=== PATIENT | female | born 1970 | race Caucasian/White ===

== ENCOUNTER 2022-09-01 18:20 | Inpatient (IN) | payer MEDICAID ==
[~2022-09-01] VITALS: Ht 167.6 cm; Wt 64.4 kg
[2022-09-01 18:20] VITALS: BP_SYST 114
[2022-09-01 19:00] LABS: BASOPHILS # (AUTO) 0.1 K/uL (0.0-0.2); BASOPHILS % (AUTO) 0.9 % (0.0-2.0); EOSINOPHILS # (AUTO) 0.2 K/uL (0.0-0.4); EOSINOPHILS % (AUTO) 1.2 % (0.0-4.0); HEMATOCRIT 30.7 % (36-48); HEMOGLOBIN 9.3 g/dL (12.0-16.0); LYMPHOCYTES # (AUTO) 1.1 K/uL (1.0-5.5); LYMPHOCYTES % (AUTO) 7.9 % (20.5-51.5); MEAN CORPUSCULAR HEMOGLOBIN 29 pg (27-31); MEAN CORPUSCULAR HGB CONC 30 % (32-36); MEAN CORPUSCULAR VOLUME 95 fL (79.0-98.0); MONOCYTES # (AUTO) 0.6 K/uL (0.0-1.0); MONOCYTES % (AUTO) 4.5 % (1.7-9.3); NEUTROPHILS % (AUTO) 85.5 % (40.0-70.0); PLATELET COUNT (AUTO) 205 K/uL (130-430); RED BLOOD CELL COUNT(AUTO) 3.24 MIL/uL (4.2-6.2); RED CELL DISTRIBUTION WIDTH 19.5 % (9.0-15.0)
[2022-09-01 19:14] LABS: CALCIUM 9.2 mg/dL (8.4-11.0); CREATININE 2.72 mg/dL (0.55-1.30)
[2022-09-01 19:19] LABS: ALBUMIN 2.8 g/dL (3.4-4.8); TOTAL BILIRUBIN 0.8 mg/dL (0.0-1.0)
[2022-09-01 19:34] LABS: INR 1.3 (0.8-1.2)
[2022-09-01] MEDS ORDERED: LORazepam 2 MG/ML VIAL IVP ONE (21:45)
[2022-09-01] MEDS ORDERED: MORPHINE 2 MG/ML INJ. SYRINGE IVP ONE (22:30)
[2022-09-02] VITALS (8 sets, daily range): BP systolic 95–116
[2022-09-02] MEDS ORDERED: cefTRIAXone 1 GM IVPB PREMIX 50 ML IV ONE (00:30)
[2022-09-02] MEDS ORDERED: CEFEPIME 2 GM in D5W 100 ML IV ONE (00:30)
[2022-09-02] MEDS ORDERED: MORPHINE 2 MG/ML INJ. SYRINGE ONE (01:27)
[2022-09-02] MEDS ORDERED: CEFEPIME 2 GM/VIAL (MAXIPIME) ONE (02:54)
[2022-09-02] MEDS ORDERED: SENN8.6T19 GT (08:32)
[2022-09-02] MEDS ORDERED: DORZ10DR13 EACH EYE (08:32)
[2022-09-02] MEDS ORDERED: MIDO10TA GT (08:32)
[2022-09-02] MEDS ORDERED: PRO40 GT (08:32)
[2022-09-02] MEDS ORDERED: LEVE500T9 IVPB (08:32)
[2022-09-02] MEDS ORDERED: MIRT-91 GT (08:32)
[2022-09-02] MEDS ORDERED: GABA-529 GT (08:32)
[2022-09-02] MEDS ORDERED: LORA-259 IVP (08:32)
[2022-09-02] MEDS ORDERED: LACT10SO7 GT (08:32)
[2022-09-02] MEDS ORDERED: DARB60VI IJ (08:32)
[2022-09-02] MEDS ORDERED: CARB30DR14 EACH EYE (08:32)
[2022-09-02] MEDS ORDERED: FOLI0.8T41 GT (08:32)
[2022-09-02] MEDS ORDERED: FLUC200T GT (08:32)
[2022-09-02] MEDS ORDERED: AMIO200T61 GT (08:32)
[2022-09-02] MEDS ORDERED: VIS25 GT (08:32)
[2022-09-02] MEDS ORDERED: MELA5TAB21 GT (08:32)
[2022-09-02] MEDS ORDERED: HYDR-3917 GT (08:32)
[2022-09-02] MEDS ORDERED: BRI.2% EACH EYE (08:32)
[2022-09-02] MEDS ORDERED: WARF3TAB59 PO (11:14)
[2022-09-02] MEDS ORDERED: DARBEPOETIN ALFA IN POLYSORBAT 60 MCG IJ SCH (13:30)
[2022-09-02] MEDS ORDERED: NALOXONE HCL 0.4 MG/ML AMP (NARCAN) IVP PRN (13:30)
[2022-09-02] MEDS ORDERED: AMIODARONE HCL 200 MG TABLET GT ONE (13:30)
[2022-09-02] MEDS ORDERED: NEPHROVITE, (FOLIC ACID/VITAMIN B COMP W-C 1 TAB) GT ONE (15:30)
[2022-09-02] MEDS: HYDROcodone/ACETAMIN 5-325 MG TAB (NORCO/ VICODIN) GT PRN (15:36)
[2022-09-02] MEDS ORDERED: MIDODRINE HCL 5 MG TABLET (PROAMATINE) GT ONE (16:00)
[2022-09-02] MEDS ORDERED: FLUCONAZOLE 200 MG TABLET (DIFLUCAN) GT ONE (16:00)
[2022-09-02] MEDS: PEG 400/HYPROMELLOSE/GLYCERIN 15 ML DROPS EACH EYE SCH ×2 (17:00→21:25)
[2022-09-02] MEDS ORDERED: WARFARIN SODIUM 5 MG TABLET GT ONE (18:00)
[2022-09-02 18:19] LABS: BF APPEARANCE UNSPUN HAZY (CLEAR); BODY FLUID COLOR YELLOW (LT YELLOW); BODY FLUID SOURCE/ TYPE ASCITES; BODY FLUID TOTAL VOLUME 5175 mL; SOURCE/TYPE ,BODY FLUID ASCITES
[2022-09-02] MEDS ORDERED: MELATONIN 5 MG TABLET PO SCH (21:00)
[2022-09-02] MEDS ORDERED: GABAPENTIN 100 MG CAPSULE GT SCH (21:00)
[2022-09-02] MEDS ORDERED: MIRTAZAPINE 15 MG TABLET GT SCH (21:00)
[2022-09-02] MEDS: DORZOLAMIDE HCL/TIMOLOL MAL. 10 ML EYE DROPS (COSOPT) EACH EYE SCH (21:25)
[2022-09-02] MEDS: BRIMONIDINE TARTRATE 0.2% 5 mL EYE DROPS EACH EYE SCH (21:26)
[2022-09-02] MEDS: LevETIRAcetam 500 MG/5 ML UDC ORAL LIQUID GT SCH (21:26)
[2022-09-02] MEDS: LORazepam 1 MG TABLET PO PRN (21:27)
[2022-09-02 21:47] LABS: EOSINOPHIL, BODY FLUID 0 %; LYMPHOCYTES, BODY FLUID 72 %; MONOCYTES,BODY FLUID 26 %; NEUTROPHIL, BODY FLUID 2 %; RBC, BODY FLUID 7 /uL; WBC, BODY FLUID 4 /uL
[2022-09-02 22:27] LABS: BODY FLUID GLUCOSE 90 mg/dL; BODY FLUID TOTAL PROTEIN 4.6 g/dL
[2022-09-03 00:20] VITALS: BP_SYST 84
[2022-09-03 00:42] VITALS: BP_SYST 92
[2022-09-03] MEDS: LORazepam 1 MG TABLET PO PRN (03:48)
[2022-09-03 07:07] LABS: BASOPHILS # (AUTO) 0.1 K/uL (0.0-0.2); BASOPHILS % (AUTO) 1.5 % (0.0-2.0); EOSINOPHILS # (AUTO) 0.1 K/uL (0.0-0.4); EOSINOPHILS % (AUTO) 0.8 % (0.0-4.0); HEMATOCRIT 24.8 % (36-48); LYMPHOCYTES # (AUTO) 0.7 K/uL (1.0-5.5); LYMPHOCYTES % (AUTO) 9.7 % (20.5-51.5); MEAN CORPUSCULAR HEMOGLOBIN 30 pg (27-31); MEAN CORPUSCULAR HGB CONC 32 % (32-36); MEAN CORPUSCULAR VOLUME 93 fL (79.0-98.0); MONOCYTES # (AUTO) 0.5 K/uL (0.0-1.0); MONOCYTES % (AUTO) 6.1 % (1.7-9.3); NEUTROPHILS # (AUTO) 6.2 K/uL (1.8-7.7); NEUTROPHILS % (AUTO) 81.9 % (40.0-70.0); PLATELET COUNT (AUTO) 167 K/uL (130-430); RED BLOOD CELL COUNT(AUTO) 2.67 MIL/uL (4.2-6.2); RED CELL DISTRIBUTION WIDTH 18.8 % (9.0-15.0); WHITE BLOOD COUNT (AUTO) 7.5 K/uL (4.8-10.8)
[2022-09-03 07:20] LABS: INR 1.4 (0.8-1.2); PROTHROMBIN TIME 14.4 SECS (9.5-12.5)
[2022-09-03 07:44] LABS: ALBUMIN 2.1 g/dL (3.4-4.8); CALCIUM 8.6 mg/dL (8.4-11.0); CREATININE 3.26 mg/dL (0.55-1.30); TOTAL BILIRUBIN 0.6 mg/dL (0.0-1.0)
[2022-09-03] MEDS ORDERED: LANSOPRAZOLE 30 MG CAPSULE.DR GT SCH (09:00)
[2022-09-03] MEDS ORDERED: NEPHROVITE, (FOLIC ACID/VITAMIN B COMP W-C 1 TAB) GT SCH (09:00)
[2022-09-03] MEDS ORDERED: SENNOSIDES 8.6 MG TABLET GT SCH (09:00)
[2022-09-03] MEDS ORDERED: MIDODRINE HCL 5 MG TABLET (PROAMATINE) GT SCH ×2 (09:00)
[2022-09-03] MEDS ORDERED: AMIODARONE HCL 200 MG TABLET GT SCH (09:00)
[2022-09-03] MEDS ORDERED: LACTULOSE 20 GM/30 ML UDC GT SCH (09:00)
[2022-09-03] MEDS ORDERED: WARFARIN SODIUM 3 MG TABLET GT SCH (09:00)
[2022-09-03] MEDS ORDERED: FLUCONAZOLE 200 MG TABLET (DIFLUCAN) GT SCH (09:00)
[2022-09-03] MEDS: BRIMONIDINE TARTRATE 0.2% 5 mL EYE DROPS EACH EYE SCH (09:08)
[2022-09-03] MEDS: PEG 400/HYPROMELLOSE/GLYCERIN 15 ML DROPS EACH EYE SCH (09:09)
[2022-09-03] MEDS: LevETIRAcetam 500 MG/5 ML UDC ORAL LIQUID GT SCH (09:09)
[2022-09-03] MEDS: DORZOLAMIDE HCL/TIMOLOL MAL. 10 ML EYE DROPS (COSOPT) EACH EYE SCH (09:09)
[2022-09-03] MEDS: HYDROcodone/ACETAMIN 5-325 MG TAB (NORCO/ VICODIN) GT PRN (09:15)
[2022-09-03 10:39] VITALS: BP_SYST 90
[2022-09-03 11:34] VITALS: BP_SYST 91
[2022-09-03 11:42] VITALS: BP_SYST 94
== END 2022-09-03 12:20 ==
LOC: SED 18:20 → SMU 09-02 08:12 → STU 09-02 10:06
PROVIDERS: ADMIT Internal Medicine; ATTEND Internal Medicine
PROC: 5A1945Z Respiratory Ventilation, 24-96 Consecutive Hours (ICD-10-PCS; principal; 2022-09-02)
PROC: 0W9G3ZZ Drainage of Peritoneal Cavity, Percutaneous Approach (ICD-10-PCS; 2022-09-02)
PROC: BW40ZZZ Ultrasonography of Abdomen (ICD-10-PCS; 2022-09-02)
DX: R18.8 Other ascites (principal); J96.10 Chronic respiratory failure, unspecified whether with hypoxia or hypercapnia; I42.9 Cardiomyopathy, unspecified; N18.6 End stage renal disease; D63.1 Anemia in chronic kidney disease; R65.10 Systemic inflammatory response syndrome (SIRS) of non-infectious origin without acute organ dysfunction; Q87.40 Marfan syndrome, unspecified; I50.22 Chronic systolic (congestive) heart failure; K74.69 Other cirrhosis of liver; G40.909 Epilepsy, unspecified, not intractable, without status epilepticus; I48.0 Paroxysmal atrial fibrillation; Z20.822 Contact with and (suspected) exposure to COVID-19; B96.89 Other specified bacterial agents as the cause of diseases classified elsewhere; H54.7 Unspecified visual loss; Z79.01 Long term (current) use of anticoagulants; Z93.0 Tracheostomy status; Z93.4 Other artificial openings of gastrointestinal tract status; Z86.73 Personal history of transient ischemic attack (TIA), and cerebral infarction without residual deficits; Z95.2 Presence of prosthetic heart valve; Z99.2 Dependence on renal dialysis
CPT/HCPCS: 36415; 49083; 71045; 76376; 80053; 82042; 82140; 82150; 82947; 83605; 84157; 84484; 85025; 85610-TC; 85730-TC; 87040; 87070-TC; 87081; 87205-TC; 88108; 88305; 89051-TC; 89060-TC; 94002; 94003; 94640; 94760; 96365; 96375; 99285; G0378; J0692; J2060; J2270

== ENCOUNTER 2022-09-23 18:35 | Inpatient (IN) | payer MEDICAID ==
[~2022-09-23] VITALS: Ht 167.6 cm; Wt 67.1 kg
[~2022-09-23 18:35] MED LIST: AMIO200T61 GT; BRI.2% EACH EYE; CARB30DR14 EACH EYE; DARB60VI IJ; DORZ10DR13 EACH EYE; FLUC200T GT; FOLI0.8T41 GT; GABA-529 GT; HYDR-3917 GT; LACT10SO7 GT; LEVE500T9 IVPB; LORA-259 IVP; MELA5TAB21 GT; MIDO10TA GT; MIRT-91 GT; PRO40 GT; SENN8.6T19 GT; VIS25 GT; WARF3TAB59 PO
[2022-09-23 18:50] VITALS: BP_SYST 105
[2022-09-23] MEDS ORDERED: VANCOMYCIN HCL 1,000 MG in D5W 250 ML IV ONE (19:00)
[2022-09-23] MEDS ORDERED: HYDROmorphone 1 MG/ML INJ. CARTRIDGE IVP ONE ×3 (19:00→22:00)
[2022-09-23] MEDS ORDERED: PIPERACILLIN/TAZO 3.375 GM in D5W 50 ML IV ONE (19:00)
[2022-09-23] MEDS ORDERED: ONDANSETRON HCL 4 MG/2 ML VIAL IVP ONE ×2 (19:00)
--- NOTE | 2022-09-23 19:00 | NUR ---
ER Dr.DELA COX at bedside examining patient.
[2022-09-23 19:23] LABS: BASOPHILS # (AUTO) 0.1 K/uL (0.0-0.2); BASOPHILS % (AUTO) 1.1 % (0.0-2.0); EOSINOPHILS % (AUTO) 0.7 % (0.0-4.0); HEMATOCRIT 27.6 % (36-48); LYMPHOCYTES # (AUTO) 0.5 K/uL (1.0-5.5); LYMPHOCYTES % (AUTO) 6.5 % (20.5-51.5); MEAN CORPUSCULAR HEMOGLOBIN 29 pg (27-31); MEAN CORPUSCULAR HGB CONC 33 % (32-36); MEAN CORPUSCULAR VOLUME 90 fL (79.0-98.0); MONOCYTES # (AUTO) 0.4 K/uL (0.0-1.0); NEUTROPHILS # (AUTO) 6.2 K/uL (1.8-7.7); NEUTROPHILS % (AUTO) 86.7 % (40.0-70.0); PLATELET COUNT (AUTO) 117 K/uL (130-430); RED BLOOD CELL COUNT(AUTO) 3.07 MIL/uL (4.2-6.2); RED CELL DISTRIBUTION WIDTH 19.5 % (9.0-15.0); WHITE BLOOD COUNT (AUTO) 7.1 K/uL (4.8-10.8)
[2022-09-23 19:41] LABS: ANION GAP 10 (5-15); CHLORIDE 97 mmol/L (98-107); CREATININE 1.71 mg/dL (0.55-1.30); GLUCOSE 84 mg/dL (70-99); UREA NITROGEN, BLOOD 28 mg/dL (8-21)
[2022-09-23 19:43] LABS: INR 2.6 (0.8-1.2)
[2022-09-23 19:44] LABS: GFR AFRICAN AMERICAN 41 mL/min (>90)
[2022-09-23] MEDS ORDERED: MAG HYDROX/AL HYDROX/SIMETH 30 ML, DICYCLOMINE HCL 20 MG, LIDOCAINE VISCOUS 2% 15ML (PO... PO ONE ×3 (19:45)
[2022-09-23 19:48] LABS: ALANINE AMINOTRANSFERASE 18 U/L (12-78); ALBUMIN 3.6 g/dL (3.4-4.8); ASPARTATE AMINOTRANSFERASE 18 U/L (10-37); TOTAL BILIRUBIN 1.1 mg/dL (0.0-1.0)
--- NOTE | 2022-09-23 20:25 | NUR ---
Placed in room 2 . Placed on teletypesetter monitor, blood pressure machine and pulse oximeter. To gown for exam. Side rails up. Report given to LEIGH ANN CALI(REG).
--- NOTE | 2022-09-23 20:25 | NUR ---
pt brought in by EMS from [facility] for abdominal pain, stating needing paracentesis. pt connected to bedside monitors. a & o. pt with tracheosotomy and G-Tube. abdominal pain and distention noted. pt with dialysis access to the right upper chest and double lumen midline to the right upper arm. pt ventilator settings AC 20, vT 400, PEEP 5, Fi02 50%. Tracheostomy Shiley XLT size 7. pt able to speak softly. c/o abdominal pain. no acute distress noted. gurney in lowest locked position. will continue to monitor.
--- NOTE | 2022-09-23 21:00 | NUR ---
pt taken to CT via gurney with engineering technologist and RT. pt stable. no acute distress noted.
--- NOTE | 2022-09-23 21:22 | NUR ---
Note [email or web address] in EDM - 09/23/22 at 2125 by [email or web address] RT NOTES ASSISTED WITH TRANSFER OF PATIENT TO CT SCAN OF ABDOMEN. PT BAGGED WITH 100% FIO2 VIA AMBU BAG. NO SOB NOTED. PLACED BACK ON VENT AFTER CT WITH CURRENT SETTINGS.
--- NOTE | 2022-09-23 21:25 | NUR ---
RT NOTES ASSISTED WITH TRANSFER OF PATIENT AT [address] SCAN OF ABDOMEN. PT BAGGED WITH 100% FIO2 VIA AMBU BAG. NO SOB NOTED. PLACED BACK ON VENT AFTER CT WITH CURRENT SETTINGS.
--- NOTE | 2022-09-23 21:38 | NUR ---
Admit bed requested Patient will be admitted to care of . Admitted to TELE unit. Diagnosis ABD PAIN Inpatient (Yes or No) YES Observation (Yes or No) NO Orientation concerns or request close to nursing station (Yes or No) YES Covid Status PENDING On vent or bipap VENT Isolation requirements [facility] Needs a sitter NO From Home (Yes or if No enter name of facility) [facility] Requires Dialysis (Yes or No) NO Med Rec Completed (Yes of No) PENDING
[2022-09-23] MEDS ORDERED: NALOXONE HCL 0.4 MG/ML AMP (NARCAN) IVP PRN (22:00)
[2022-09-23] MEDS ORDERED: DARBEPOETIN ALFA IN POLYSORBAT 60 MCG IJ SCH (22:00)
[2022-09-23] MEDS ORDERED: LORazepam 1 MG TABLET GT PRN (22:00)
[2022-09-23] MEDS ORDERED: PANTOPRAZOLE SODIUM 40 MG/VIAL (PROTONIX) IVP ONE (22:15)
--- NOTE | 2022-09-23 22:30 | NUR ---
COVID AND MRSA SWABS COLLECETD AND SENT TO LAB.
[2022-09-23] MEDS ORDERED: PIPERACILLIN/TAZOBACTAM 3.375 GM/VIAL (ZOSYN) IV ONE (23:23)
--- NOTE | 2022-09-23 23:40 | NUR ---
RT NOTES ASSISTED WITH TRANSFER TO [facility]. BAGGED PT WITH 100% FIO2 VIA AMBU BAG. NO SOB NOTED. PLACED BACK ON VENT WITH CURRENT SETTINGS. Addendum: 09/24/22 at 0049 by Orlando Iyer RT Amended: Links added.
--- NOTE | 2022-09-24 00:02 | NUR ---
Patient will be admitted to care of telemetry. Admitted to tele unit. Will go to room 111 A. Belongings list completed. Complete and up to date summary report printed. SBAR report to be given at bedside to KARELY Agosto with opportunity for questions.
--- NOTE | 2022-09-24 00:15 | NUR ---
ADMISSION NOTE Received patient from ER via gurney. Patient admitted with diagnosis of ABD PAIN. Patient is awake, alert, oriented X 3 and Aphasic. Patient is also vent dependent. Patient oriented to hospital room, call light, toileting, pain management and safety-teach back done. Patient informed that Viral Morgan will be the nurse and that their room number is 111A. Personal belongings checked and Belongings List documented. Call light within reach.
[2022-09-24 00:44] VITALS: BP_SYST 77
[2022-09-24 01:09] VITALS: BP_SYST 96
--- NOTE | 2022-09-24 04:01 | NUR ---
Consultation Paged Reason for Consultation: Abdominal Pain Was consult called: Y Person who was notified: Sarai Consulting Physician: Dr. Foss (Dr. Davis is customer relationship specialist) Ordering Physician: Dr. Rodriguez
--- NOTE | 2022-09-24 04:24 | NUR ---
Consultation Paged Reason for Consultation: respiratory failure Was consult called: Y Person who was notified: Barbra Consulting Physician: Dr. Garnica Ordering Physician: Dr. Rodriguez
--- NOTE | 2022-09-24 04:30 | NUR ---
Consultation Paged Reason for Consultation: Renal Failure Was consult called: Y Person who was notified: Sarai Consulting Physician: Jhon Mcmanus (Dr. Kumar is clinical documentation manager) Ordering Physician: Dr. Rodriguez
[2022-09-24] MEDS: PEG 400/HYPROMELLOSE/GLYCERIN 15 ML DROPS EACH EYE SCH ×4 (09:00→21:00)
[2022-09-24] MEDS: BRIMONIDINE TARTRATE 0.2% 5 mL EYE DROPS EACH EYE SCH ×2 (09:48→20:45)
[2022-09-24] MEDS: AMIODARONE HCL 200 MG TABLET GT SCH (09:50)
[2022-09-24] MEDS: MIDODRINE HCL 5 MG TABLET (PROAMATINE) GT SCH (09:50)
[2022-09-24] MEDS: SENNOSIDES 8.6 MG TABLET GT SCH (09:50)
[2022-09-24] MEDS: levETIRAcetam 500 MG TABLET GT SCH (09:50)
[2022-09-24] MEDS: NEPHROVITE, (FOLIC ACID/VITAMIN B COMP W-C 1 TAB) GT SCH (09:50)
[2022-09-24 09:53] LABS: BASOPHILS # (AUTO) 0.1 K/uL (0.0-0.2); BASOPHILS % (AUTO) 1.1 % (0.0-2.0); EOSINOPHILS % (AUTO) 0.7 % (0.0-4.0); HEMATOCRIT 24.9 % (36-48); HEMOGLOBIN 8.1 g/dL (12.0-16.0); LYMPHOCYTES # (AUTO) 0.7 K/uL (1.0-5.5); LYMPHOCYTES % (AUTO) 14.8 % (20.5-51.5); MEAN CORPUSCULAR HEMOGLOBIN 29 pg (27-31); MEAN CORPUSCULAR HGB CONC 33 % (32-36); MEAN CORPUSCULAR VOLUME 89 fL (79.0-98.0); MONOCYTES # (AUTO) 0.4 K/uL (0.0-1.0); MONOCYTES % (AUTO) 9.2 % (1.7-9.3); NEUTROPHILS # (AUTO) 3.5 K/uL (1.8-7.7); NEUTROPHILS % (AUTO) 74.2 % (40.0-70.0); PLATELET COUNT (AUTO) 107 K/uL (130-430); RED CELL DISTRIBUTION WIDTH 18.8 % (9.0-15.0); WHITE BLOOD COUNT (AUTO) 4.8 K/uL (4.8-10.8)
[2022-09-24] MEDS: HYDROcodone/ACETAMIN 5-325 MG TAB (NORCO/ VICODIN) GT PRN ×2 (09:53→18:31)
[2022-09-24] MEDS: LACTULOSE 20 GM/30 ML UDC GT SCH (09:53)
[2022-09-24] MEDS: PANTOPRAZOLE SODIUM 40 MG/VIAL (PROTONIX) IVP SCH (09:56)
[2022-09-24 10:10] LABS: ALBUMIN 2.8 g/dL (3.4-4.8); CALCIUM 8.9 mg/dL (8.4-11.0); CREATININE 1.96 mg/dL (0.55-1.30); INR 2.2 (0.8-1.2); PHOSPHORUS 4.1 mg/dL (2.7-4.5); PROTHROMBIN TIME 22.5 SECS (9.5-12.5); TOTAL BILIRUBIN 1.1 mg/dL (0.0-1.0)
[2022-09-24 10:49] VITALS: BP_SYST 94
--- NOTE | 2022-09-24 12:12 | NUR ---
Informed by technical writer that Radiology will hold off on paracentesis due to low blood pressure. Radiologist recommending 2 units FFP then will revisit case in the morning.
[2022-09-24 18:43] VITALS: BP_SYST 104
[2022-09-24 18:44] VITALS: BP_SYST 114
--- NOTE | 2022-09-24 19:00 | NUR ---
RECEIVED PT IN BED WITH AT THE BEDSIDE.AOX3.ON TRACH TO VENT WITH SETTINGS OF AC, RATE-20,TV-400,FIO2-40% AND PEEP-5.R CHEST PERMA CATH NOTED FOR HD ACCESS.R UPPER ARM MIDLINE IN PLACE.G TUBE IN PLACE, FEEDING WAS HELD DUE TO FAMILY REFUSAL.ABDOMINAL DISTENTION NOTED, MD AWARE.BED IN LOWEST POSITION.BEDSIDE TABLE AND CALL LIGHT ARE WITHIN REACH.
[2022-09-24 20:00] VITALS: BP_SYST 90
--- NOTE | 2022-09-24 20:00 | NUR ---
MD FRAGOSO MADE AWARE THAT FEEDING WAS HELD SINCE 1300 BECAUSE THE FAMILY REFUSED.
[2022-09-24] MEDS: MIRTAZAPINE 15 MG TABLET GT SCH (20:45)
[2022-09-24] MEDS: GABAPENTIN 100 MG CAPSULE GT SCH (20:45)
[2022-09-24] MEDS: MELATONIN 5 MG TABLET PO SCH (20:46)
[2022-09-24] MEDS: DORZOLAMIDE HCL/TIMOLOL MAL. 10 ML EYE DROPS (COSOPT) EACH EYE SCH (21:00)
[2022-09-25] VITALS (12 sets, daily range): BP systolic 91–115
--- NOTE | 2022-09-25 | NUR ---
PT IS ASLEEP.NOT IN RESPIRATORY DISTRESS NOTED.
--- NOTE | 2022-09-25 02:00 | NUR ---
REPOSITIONED PT.ALL NEEDS ARE MET AT THIS TIME.
[2022-09-25] MEDS: DORZOLAMIDE HCL/TIMOLOL MAL. 10 ML EYE DROPS (COSOPT) EACH EYE SCH ×3 (06:19→21:00)
--- NOTE | 2022-09-25 06:48 | NUR ---
PATIENT IS NOT IN RESPIRATORY DISTRESS , ALL SAFETY PRECAUTIONS DONE. BED IN LOWEST POSITION, CALL LIGHT IS WITHIN REACH.WILL GIVE AM SHIFT RN BEDSIDE REPORT.
[2022-09-25 07:22] LABS: INR 1.9 (0.8-1.2); PROTHROMBIN TIME 18.9 SECS (9.5-12.5)
[2022-09-25 07:27] LABS: BASOPHILS # (AUTO) 0.1 K/uL (0.0-0.2); BASOPHILS % (AUTO) 2.7 % (0.0-2.0); EOSINOPHILS # (AUTO) 0.1 K/uL (0.0-0.4); EOSINOPHILS % (AUTO) 1.3 % (0.0-4.0); HEMATOCRIT 25.5 % (36-48); HEMOGLOBIN 8.2 g/dL (12.0-16.0); LYMPHOCYTES % (AUTO) 19.7 % (20.5-51.5); MEAN CORPUSCULAR HEMOGLOBIN 29 pg (27-31); MEAN CORPUSCULAR HGB CONC 32 % (32-36); MEAN CORPUSCULAR VOLUME 90 fL (79.0-98.0); MONOCYTES # (AUTO) 0.4 K/uL (0.0-1.0); MONOCYTES % (AUTO) 8.4 % (1.7-9.3); NEUTROPHILS # (AUTO) 3.3 K/uL (1.8-7.7); NEUTROPHILS % (AUTO) 67.9 % (40.0-70.0); PLATELET COUNT (AUTO) 109 K/uL (130-430); RED BLOOD CELL COUNT(AUTO) 2.85 MIL/uL (4.2-6.2); RED CELL DISTRIBUTION WIDTH 18.6 % (9.0-15.0); WHITE BLOOD COUNT (AUTO) 4.8 K/uL (4.8-10.8)
[2022-09-25 07:37] LABS: ALBUMIN 2.7 g/dL (3.4-4.8); CALCIUM 9.1 mg/dL (8.4-11.0); CREATININE 2.26 mg/dL (0.55-1.30); PHOSPHORUS 4.6 mg/dL (2.7-4.5); TOTAL BILIRUBIN 1.3 mg/dL (0.0-1.0)
--- NOTE | 2022-09-25 08:10 | NUR ---
RAPID RESPONSE CALLED @0810 BP 33/13 REPOSITION BP CUFF 53/33, BS 50 @0813 D50 GIVEN AT 0815
[2022-09-25] MEDS ORDERED: DEXTROSE 50% JECT 50 ML DISP.SYRIN ONE (08:16)
--- NOTE | 2022-09-25 08:20 | NUR ---
0810 RAPID RESPONSE CALLED. SPO2 97%, HR 69. NO RESPIRATORY DISTRESS NOTED. LOW BLOOD SUGAR.
--- NOTE | 2022-09-25 08:23 | NUR ---
Attending md Dr Rodriguez was paged, RE: to inform that Rapid Response was called for Hypotension BP 56/19. Spoke to Jeet.
--- NOTE | 2022-09-25 08:25 | NUR ---
BS 162
--- NOTE | 2022-09-25 08:27 | NUR ---
BP 116/57
--- NOTE | 2022-09-25 09:00 | NUR ---
BP 0900 Addendum: 09/25/22 at 1009 by Elma Montgomery LVN /
[2022-09-25 09:12] LABS: INR 1.9 (0.8-1.2); PROTHROMBIN TIME 19.2 SECS (9.5-12.5)
--- NOTE | 2022-09-25 09:45 | NUR ---
GAVE REPORT TO ICU NURSE CHATA CALIWATER PURIFICATION CHEMIST TO ICU AFTER US
--- NOTE | 2022-09-25 10:07 | NUR ---
DR DIAZ AT BEDSIDE FOR US PARA.
[2022-09-25] MEDS ORDERED: ALBUMIN HUMAN 25% 200 ML IV ONE (10:15)
[2022-09-25] MEDS: DEXTROSE 10%-WATER 500 ML IV SCH (13:17)
[2022-09-25] MEDS: PEG 400/HYPROMELLOSE/GLYCERIN 15 ML DROPS EACH EYE SCH ×4 (13:18→21:00)
[2022-09-25] MEDS: BRIMONIDINE TARTRATE 0.2% 5 mL EYE DROPS EACH EYE SCH ×2 (13:18→21:00)
[2022-09-25] MEDS: AMIODARONE HCL 200 MG TABLET GT SCH (13:21)
[2022-09-25] MEDS: LACTULOSE 20 GM/30 ML UDC GT SCH (13:22)
[2022-09-25] MEDS: levETIRAcetam 500 MG TABLET GT SCH (13:24)
[2022-09-25] MEDS: NEPHROVITE, (FOLIC ACID/VITAMIN B COMP W-C 1 TAB) GT SCH (13:24)
[2022-09-25] MEDS: SENNOSIDES 8.6 MG TABLET GT SCH (13:25)
[2022-09-25] MEDS: MIDODRINE HCL 5 MG TABLET (PROAMATINE) GT SCH (13:25)
[2022-09-25] MEDS: PANTOPRAZOLE SODIUM 40 MG/VIAL (PROTONIX) IVP SCH (13:26)
[2022-09-25] MEDS: MORPHINE 2 MG/ML INJ. SYRINGE IVP PRN (15:09)
--- NOTE | 2022-09-25 15:30 | NUR ---
DIALYSIS AT BEDSIDE BP 86/41
--- NOTE | 2022-09-25 15:43 | NUR ---
PATIENT GIVEN BACK TO ME BEDSIDE SBAR FROM ICU NURSE.
[2022-09-25 16:38] LABS: BF APPEARANCE UNSPUN CLEAR (CLEAR); BODY FLUID COLOR YELLOW (LT YELLOW); LYMPHOCYTES, BODY FLUID 41 %; NEUTROPHIL, BODY FLUID 59 %; RBC, BODY FLUID 88 /uL; SOURCE/TYPE ,BODY FLUID PARACENTESIS; WBC, BODY FLUID 48 /uL
--- NOTE | 2022-09-25 16:40 | NUR ---
Patient to transfer to [facility] Room 205. Number for report [phone]. Ambulance transport by [facility] at 5 PM-phone #[phone]
--- NOTE | 2022-09-25 16:51 | NUR ---
TRANSPORT MOVED TO 1900 DUE TO DIALYSIS.
[2022-09-25 17:13] LABS: BODY FLUID TOTAL VOLUME 3300 mL
[2022-09-25] MEDS: ALBUMIN HUMAN 25% 50 ML IV SCH (18:30)
[2022-09-25] MEDS: HYDROcodone/ACETAMIN 5-325 MG TAB (NORCO/ VICODIN) GT PRN (20:19)
[2022-09-25] MEDS: GABAPENTIN 100 MG CAPSULE GT SCH (20:20)
[2022-09-25] MEDS: MELATONIN 5 MG TABLET PO SCH (21:00)
[2022-09-25 21:33] LABS: BODY FLUID GLUCOSE 73 mg/dL; BODY FLUID TOTAL PROTEIN 4.2 g/dL
[2022-09-26] VITALS (8 sets, daily range): BP systolic 99–123
[2022-09-26] MEDS: DEXTROSE 10%-WATER 500 ML IV SCH ×2 (01:25→19:28)
--- NOTE | 2022-09-26 02:45 | NUR ---
IVAN LOYA SPOKE WITH [facility] REFERENCE NUMBER [id number] [facility]
--- NOTE | 2022-09-26 04:39 | NUR ---
Closing Notes Received pt in bed with her staying with her. Pt was in no distressed mood. Precaution safety was taken. Bed in low position with breaks set. Also call light was put in reach for the pt to call if need to.pt is comfortable and resting.
--- NOTE | 2022-09-26 05:43 | NUR ---
IVAN LOYA SPOKE WITH WOOD AND SHE INFORMED ME THAT [facility] WILL STORE GROUP MANAGER AT 1400 AND TO TAKE PT TO [facility] ROOM 205. CONFIRMED THAT IT IS WITH ARMANI AT [facility] THAT IT IS WITH [facility]
[2022-09-26] MEDS: MIRTAZAPINE 15 MG TABLET GT SCH ×2 (05:59→21:06)
[2022-09-26] MEDS: ALBUMIN HUMAN 25% 50 ML IV SCH ×2 (06:18→14:30)
--- NOTE | 2022-09-26 07:02 | NUR ---
notes pat dressing was changed and repositioned.resting comfortably.
[2022-09-26 09:58] LABS: INR 1.7 (0.8-1.2); PROTHROMBIN TIME 17.4 SECS (9.5-12.5)
[2022-09-26] MEDS: BRIMONIDINE TARTRATE 0.2% 5 mL EYE DROPS EACH EYE SCH (14:13)
[2022-09-26] MEDS: DORZOLAMIDE HCL/TIMOLOL MAL. 10 ML EYE DROPS (COSOPT) EACH EYE SCH ×2 (14:14→21:09)
[2022-09-26] MEDS: PEG 400/HYPROMELLOSE/GLYCERIN 15 ML DROPS EACH EYE SCH ×3 (14:14→16:56)
[2022-09-26] MEDS: SENNOSIDES 8.6 MG TABLET GT SCH (14:32)
[2022-09-26] MEDS: AMIODARONE HCL 200 MG TABLET GT SCH (14:32)
[2022-09-26] MEDS: HYDROcodone/ACETAMIN 5-325 MG TAB (NORCO/ VICODIN) GT PRN (14:33)
[2022-09-26] MEDS: NEPHROVITE, (FOLIC ACID/VITAMIN B COMP W-C 1 TAB) GT SCH (14:33)
[2022-09-26] MEDS: PANTOPRAZOLE SODIUM 40 MG/VIAL (PROTONIX) IVP SCH (14:34)
[2022-09-26] MEDS: levETIRAcetam 500 MG TABLET GT SCH (14:34)
[2022-09-26] MEDS: MIDODRINE HCL 5 MG TABLET (PROAMATINE) GT SCH (14:35)
[2022-09-26] MEDS: LACTULOSE 20 GM/30 ML UDC GT SCH (14:52)
[2022-09-26] MEDS: MORPHINE 2 MG/ML INJ. SYRINGE IVP PRN (16:55)
--- NOTE | 2022-09-26 20:38 | NUR ---
Patient has been calm and receiving care throughout the day from this RN with assistance from the patient's .Several things have occurred during the day that required follow up. First, patient's was concerned regarding the time that patient would receive hemodialysis. Spoke with spinner box Teressa and she advised after consulting with documentation coordinator that patient will have dialysis tomorrow. states that patient has higher BP because treatment given today and it would be better to do in in the afternoon. Passed on to NOC RN that patient thinks dialysis is better for his between 12-4 PM. This RN advised patient that we would pass on the information but the time dialysis is done is up to the RN that does it, based on priority of need.
--- NOTE | 2022-09-26 20:39 | NUR ---
Jarad Rodriguez s/w Shannan
--- NOTE | 2022-09-26 20:48 | NUR ---
Patient has been complaining of pain this afternoon. Gave [place] first, with no help. Then gave morphine 2mg and that helped immediately but after 2 hours, patient stated abdominal pain had returned. Next dose is too long for patient so this RN called MD to get orders and to give critical values regarding sputum culture. Currently endorsing to [facility] RN for follow up on pain and advising of critical lab values.
--- NOTE | 2022-09-26 20:54 | NUR ---
Patient was discharged by Dr. Rodriguze yesterday but patient had no transportation until today. The [facility] ambulance EMT's came to take patient but the Nursing Axle Inspector at [facility] said that she had called this morning to ask if patient was being discharged and she was told no by the Nursing Axle Inspector here because no order at the time. The Nursing Axle Inspector at [facility] checked with [facility] [phone], and was told that they need to be contacted by Case management in order to accept the patient. The bed assigned had been reassigned. This RN and the ambulance crew waited about an hour to see if patient could be accepted. When finally told no, the EMT's prior to leaving said they would return when room is secured.
[2022-09-26] MEDS: GABAPENTIN 100 MG CAPSULE GT SCH (21:05)
--- NOTE | 2022-09-26 21:13 | NUR ---
CALLED BACK: DR FRAGOSO CALLED BACK , ASKED ME WHICH MEDICATION PT IS SENSITIVE TO IN THE SPUTUM CULTURE , I NOTIFIED HIM , MD ASKED FOR ALLERGIES , NOTIFIED MD THAT NKA PER COMPUTER ,MD ORDERED ZOSYN 2.25 GM IVPB Q6HRS AND CULTURELLE 1 CAP PO BID THOUGHT GT . ORDER ENTERED AND NOTIFIED PRIMARY NURSE .
[2022-09-26] MEDS: MELATONIN 5 MG TABLET PO SCH (21:51)
[2022-09-26] MEDS: LACTOBACILLUS RHAMNOSUS GG 1 CAP CAPSULE PO SCH (21:52)
[2022-09-26] MEDS ORDERED: PIPERACILLIN/TAZOBACTAM 2.25 GM VIAL IV ONE (22:07)
[2022-09-27] VITALS (9 sets, daily range): BP systolic 87–114
--- NOTE | 2022-09-27 01:30 | NUR ---
CONSULTATION PAGED/CALLED Reason for Consultation: MDRO SUPERVISOR WOUND Person Who was Notified:JESSICA Consulting Physician:GERA CARVER IS BOTTLE WASHER MACHINE Director Funeral Specialty: Ordering Physician: RICHMOND
[2022-09-27] MEDS ORDERED: PIPERACILLIN/TAZO 2.25G/DEX-IS 50 ML IV SCH ×2 (04:00→22:00)
[2022-09-27] MEDS: PEG 400/HYPROMELLOSE/GLYCERIN 15 ML DROPS EACH EYE SCH ×3 (09:00→17:00)
[2022-09-27] MEDS: DORZOLAMIDE HCL/TIMOLOL MAL. 10 ML EYE DROPS (COSOPT) EACH EYE SCH (09:00)
[2022-09-27] MEDS: AMIODARONE HCL 200 MG TABLET GT SCH (09:00)
[2022-09-27] MEDS: BRIMONIDINE TARTRATE 0.2% 5 mL EYE DROPS EACH EYE SCH (09:00)
[2022-09-27 10:08] LABS: INR 1.6 (0.8-1.2); PROTHROMBIN TIME 16.2 SECS (9.5-12.5)
[2022-09-27] MEDS: PANTOPRAZOLE SODIUM 40 MG/VIAL (PROTONIX) IVP SCH (10:54)
[2022-09-27] MEDS: NEPHROVITE, (FOLIC ACID/VITAMIN B COMP W-C 1 TAB) GT SCH (10:54)
[2022-09-27] MEDS: LACTOBACILLUS RHAMNOSUS GG 1 CAP CAPSULE PO SCH ×2 (10:54→20:34)
[2022-09-27] MEDS: levETIRAcetam 500 MG TABLET GT SCH (10:55)
[2022-09-27] MEDS: SENNOSIDES 8.6 MG TABLET GT SCH (10:55)
[2022-09-27] MEDS: LACTULOSE 20 GM/30 ML UDC GT SCH (10:55)
[2022-09-27] MEDS: MIDODRINE HCL 5 MG TABLET (PROAMATINE) GT SCH (10:55)
--- NOTE | 2022-09-27 11:00 | NUR ---
CM: called Jonah MARRERO, requesting to speak with charge nurse, per US Yue , charge nurse /Jerome [phone] will call back, she was doing round at time. Addendum: 09/27/22 at 1438 by Mario Emanuel RN Late entry: s/w BRIANNA Dillard stated will accept pt back but the admission will need auth from [facility]. She advised me to call MARITZA/Jonah main office # [phone] which I LVM for the rn critical care to call me back nirmala. Also, LVM to [facility] cell # [phone] web production manager liaison to call me back as well.
[2022-09-27] MEDS: PIPERACILLIN/TAZO 2.25G/DEX-IS 50 ML IV SCH ×3 (12:00→23:57)
[2022-09-27] MEDS ORDERED: ALBUMIN HUMAN 25% 100 ML IV ONE ×2 (12:15→13:00)
[2022-09-27] MEDS: DEXTROSE 10%-WATER 500 ML IV SCH (17:28)
--- NOTE | 2022-09-27 19:30 | NUR ---
Handoff has been given to Cecilia
[2022-09-27] MEDS: MELATONIN 5 MG TABLET PO SCH (20:28)
[2022-09-27] MEDS: GABAPENTIN 100 MG CAPSULE GT SCH (20:33)
[2022-09-27] MEDS: HYDROcodone/ACETAMIN 5-325 MG TAB (NORCO/ VICODIN) GT PRN (21:21)
[2022-09-27] MEDS: MIRTAZAPINE 15 MG TABLET GT SCH (21:21)
[2022-09-28] VITALS (8 sets, daily range): BP systolic 90–114
[2022-09-28] MEDS: MORPHINE 2 MG/ML INJ. SYRINGE IVP PRN (01:45)
--- NOTE | 2022-09-28 03:09 | NUR ---
FOLLOW UP CONSULT CALLED Reason for Consultation: MDRO LAUNCHMAN Person Who was Notified:JESSICA Consulting Physician:Dr. Tavares Ordering Physician: RICHMOND
[2022-09-28] MEDS: DEXTROSE 10%-WATER 500 ML IV SCH ×2 (04:25→21:08)
[2022-09-28] MEDS: PIPERACILLIN/TAZO 2.25G/DEX-IS 50 ML IV SCH (05:35)
--- NOTE | 2022-09-28 07:54 | NUR ---
pt was not distress.All her meds were administerd and resting comfortably.bed in low position
[2022-09-28 08:24] LABS: BASOPHILS # (AUTO) 0.1 K/uL (0.0-0.2); BASOPHILS % (AUTO) 1.8 % (0.0-2.0); EOSINOPHILS # (AUTO) 0.1 K/uL (0.0-0.4); HEMOGLOBIN 7.5 g/dL (12.0-16.0); LYMPHOCYTES % (AUTO) 21.3 % (20.5-51.5); MEAN CORPUSCULAR HEMOGLOBIN 29 pg (27-31); MEAN CORPUSCULAR HGB CONC 33 % (32-36); MEAN CORPUSCULAR VOLUME 89 fL (79.0-98.0); MONOCYTES # (AUTO) 0.5 K/uL (0.0-1.0); MONOCYTES % (AUTO) 9.2 % (1.7-9.3); NEUTROPHILS # (AUTO) 3.2 K/uL (1.8-7.7); NEUTROPHILS % (AUTO) 65.7 % (40.0-70.0); PLATELET COUNT (AUTO) 80 K/uL (130-430); RED BLOOD CELL COUNT(AUTO) 2.59 MIL/uL (4.2-6.2); RED CELL DISTRIBUTION WIDTH 17.7 % (9.0-15.0); WHITE BLOOD COUNT (AUTO) 4.9 K/uL (4.8-10.8)
--- NOTE | 2022-09-28 08:40 | NUR ---
CM: called MARITZA/Jonah main office # [phone] which I LVM for the health care / medical job titles to call me back nirmala. Also, LVM to [facility] cell # [phone] relationship associate liaison to call me back as well.
[2022-09-28] MEDS: SENNOSIDES 8.6 MG TABLET GT SCH (09:00)
[2022-09-28] MEDS: LACTULOSE 20 GM/30 ML UDC GT SCH (09:00)
[2022-09-28] MEDS: AMIODARONE HCL 200 MG TABLET GT SCH (09:00)
[2022-09-28 09:14] LABS: INR 1.6 (0.8-1.2); PROTHROMBIN TIME 16.1 SECS (9.5-12.5)
[2022-09-28 09:15] LABS: CALCIUM 9.1 mg/dL (8.4-11.0); CREATININE 2.37 mg/dL (0.55-1.30)
[2022-09-28] MEDS: NEPHROVITE, (FOLIC ACID/VITAMIN B COMP W-C 1 TAB) GT SCH (12:31)
[2022-09-28] MEDS: PANTOPRAZOLE SODIUM 40 MG/VIAL (PROTONIX) IVP SCH (12:31)
[2022-09-28] MEDS: MIDODRINE HCL 5 MG TABLET (PROAMATINE) GT SCH (12:31)
[2022-09-28] MEDS: levETIRAcetam 500 MG TABLET GT SCH (12:31)
[2022-09-28] MEDS: LACTOBACILLUS RHAMNOSUS GG 1 CAP CAPSULE PO SCH ×2 (12:35→20:58)
[2022-09-28] MEDS: BRIMONIDINE TARTRATE 0.2% 5 mL EYE DROPS EACH EYE SCH ×2 (12:54→21:00)
[2022-09-28] MEDS: PEG 400/HYPROMELLOSE/GLYCERIN 15 ML DROPS EACH EYE SCH ×4 (12:55→21:00)
[2022-09-28] MEDS: DORZOLAMIDE HCL/TIMOLOL MAL. 10 ML EYE DROPS (COSOPT) EACH EYE SCH ×2 (12:56→21:00)
--- NOTE | 2022-09-28 13:37 | NUR ---
This senior grant writer received call from [facility] tran [place] provided with Vent settings and wound updates .
[2022-09-28] MEDS: HYDROcodone/ACETAMIN 5-325 MG TAB (NORCO/ VICODIN) GT PRN (13:41)
[2022-09-28] MEDS: LEVOFLOXACIN 250 MG/D5W 50 ML IV SCH (13:41)
--- NOTE | 2022-09-28 16:22 | NUR ---
WOUND EVALUATION: Late note for 09/28/2022 at 1622 secondary to patient care. Wound Consult received from Dr. Rodriguez. Thank you, Dr. Rodriguez, for the consult. Patient received in a [employer] Bed with an IsoFlex RAVINDER mattress, awake, alert, non-verbal. Patient is unable to turn independently. Karri Score is an 8. Past Medical History: Trach dependent, CHF, Marfan Syndrome, Heart Failure with reduced ejection fraction (EF of 25%), ESRD (on hemodialysis), AAA with aortic dissection, CVA with residual expressive aphasia, Seizure disorder, blindness, A-fib with RVR, Liver Cirrhosis, g-tube, ventilator dependent. Recent Labs: WBC 4.9, RBC 2.59, hemoglobin 7.5, hematocrit 23.0, platelets 80, sodium 132, chloride 97, BUN 35, creatinine 2.37, GFR 23, glucose 101, albumin 2.7, PT 16.1, INR 1.6. Microbiology: Blood culture results x2 negative. MRSA screen results negative. Sputum culture positive for Pseudomonas aeruginosa (MDRO/PILLOWCASE MAKER). Intrinsic factors that delay wound healing: A-fib, Hypoalbuminemia. Extrinsic factors that delay wound healing: Immobility. Wound Assessment: 1. Sacral-Coccygeal area: Unstageable pressure ulcer, present on admission. Wound bed has 10% red tissue, 10% black tissue, 80% yellow slough. No odor, scant yellow drainage. Periwound not intact. Undermining present from 85 o'clock (0.3 cm at 9 o'clock; 1.1 cm at 12 o'clock; 1.2 cm at 3 o'clock). Wound measures 5.2 cm x 3.7 cm x 1.0 cm. Recommend: Cleanse wound with normal saline. Apply moisture barrier cream to periwound. Apply Venelex ointment to wound bed. Pack wound with 1/4 inch packing strip. Cover with sacral foam dressing. Perform wound care daily, and as needed for dressing soiling or dislodgment. 2. Left Buttock near Ischium: Stage IV pressure ulcer, present on admission. Wound bed has 10% brown tissue, 20% red tissue, 70% black slough. No odor, scant yellow drainage. Periwound. Wound measures 5.0 cm x 3.2 cm. Recommend: Cleanse wound with normal saline. Apply moisture barrier cream to periwound. Apply Venelex ointment to wound bed. Cover with sacral foam dressing. Perform wound care daily, and as needed for dressing soiling or dislodgment. 3. Right Buttock near Ischium: Unstageable pressure ulcer, present on admission. Wound bed has 5% red tissue, 25% brown slough, 70% yellow slough. No odor, scant yellow drainage. Periwound not intact. Tunneling present at 12 o'clock measuring 1.9 cm. Wound measures 6.9 cm x 6.5 cm x 2.0 cm. Recommend: Cleanse wound with normal saline. Apply moisture barrier cream to periwound. Apply Venelex ointment to wound bed. Pack wound with 1/4 inch iodoform packing strip. Cover with sacral foam dressing. Perform wound care daily, and as needed for dressing soiling or dislodgment. 4. Right Outer Buttock: Stage II pressure ulcer, present on admission. Wound bed has 100% red tissue. No odor, no drainage. Periwound intact. Wound measures 0.5 cm x 0.4 cm. Recommend: Cleanse wound with normal saline. Apply moisture barrier cream to periwound. Apply Venelex ointment to wound bed. Cover with foam dressing. Perform wound care daily, and as needed for dressing soiling or dislodgment. 5. Right Lateral Back: Wound of unknown etiology, present on admission. Wound bed has 100% black scab. No odor, no drainage. Periwound intact. Wound measures 0.3 cm x 0.6 cm. Recommend: Cover site with foam dressing for protection. Assess site every shift with peel and peak technique. Change dressing daily, and as needed for dressing soiling or dislodgment. 6. Right Foot, Second Toe, Dorsal aspect: Chronic ischemic wound, present on admission. Wound bed has 100% black eschar. No odor, no drainage. Periwound intact. Wound measures 0.4 cm x 0.4 cm. Recommend: [place] site with Betadine. Allow Betadine to air dry. Cover with foam dressing. Perform wound care daily, and as needed for dressing soiling or dislodgement. Assess site every shift with peel and peak technique. Also recommend: Reposition patient side to side only every 2 hours with pillow support and off-load pressure areas with pillows for pressure re-distribution. Offload, elevate and float bilateral heels with pillows. Perform skin care and monitor skin integrity Q shift. Use moisture barrier cream on buttocks and other moisture susceptible areas QID and as needed for soiling. Maintain patient on a low air-loss mattress.
--- NOTE | 2022-09-28 18:45 | NUR ---
Mr Gallagher who is very involved in Miss Gallagher car has been made aware that there are no orders for transfer to [place] thus far this evening. he was made aware as he made his evening visit. he was at the bedside for the paracentesis that was completed today as well as for the dressing change with the wound nurse. he was also noted by the PUBLICATION DIRECTOR taking care pf her today feeding the client brandon butter cookies. Staff is aware that she is NPO with TF. she is resting quietly at this time. She has requested a sleep aid but was informed that is was too early for the dose.
--- NOTE | 2022-09-28 19:30 | NUR ---
Jen given to anish
[2022-09-28] MEDS: GABAPENTIN 100 MG CAPSULE GT SCH (20:58)
[2022-09-28] MEDS: MIRTAZAPINE 15 MG TABLET GT SCH (20:58)
[2022-09-28] MEDS: MELATONIN 5 MG TABLET PO SCH (20:59)
[2022-09-29 00:13] VITALS: BP_SYST 97
[2022-09-29 04:00] VITALS: BP_SYST 90
[2022-09-29] MEDS ORDERED: ALBUMIN HUMAN 25% 100 ML IV ONE ×2 (08:30)
[2022-09-29 08:53] LABS: BASOPHILS # (AUTO) 0.1 K/uL (0.0-0.2); EOSINOPHILS # (AUTO) 0.1 K/uL (0.0-0.4); EOSINOPHILS % (AUTO) 1.9 % (0.0-4.0); HEMOGLOBIN 7.5 g/dL (12.0-16.0); LYMPHOCYTES # (AUTO) 1.1 K/uL (1.0-5.5); LYMPHOCYTES % (AUTO) 21.8 % (20.5-51.5); MEAN CORPUSCULAR HEMOGLOBIN 29 pg (27-31); MEAN CORPUSCULAR HGB CONC 33 % (32-36); MEAN CORPUSCULAR VOLUME 89 fL (79.0-98.0); MONOCYTES # (AUTO) 0.4 K/uL (0.0-1.0); MONOCYTES % (AUTO) 8.7 % (1.7-9.3); NEUTROPHILS # (AUTO) 3.4 K/uL (1.8-7.7); NEUTROPHILS % (AUTO) 66.6 % (40.0-70.0); PLATELET COUNT (AUTO) 85 K/uL (130-430); RED CELL DISTRIBUTION WIDTH 17.8 % (9.0-15.0); WHITE BLOOD COUNT (AUTO) 5.1 K/uL (4.8-10.8)
[2022-09-29] MEDS: AMIODARONE HCL 200 MG TABLET GT SCH (09:00)
[2022-09-29] MEDS: LACTOBACILLUS RHAMNOSUS GG 1 CAP CAPSULE PO SCH ×2 (09:08→21:48)
[2022-09-29] MEDS: LACTULOSE 20 GM/30 ML UDC GT SCH (09:08)
[2022-09-29] MEDS: levETIRAcetam 500 MG TABLET GT SCH (09:08)
[2022-09-29] MEDS: SENNOSIDES 8.6 MG TABLET GT SCH (09:08)
[2022-09-29] MEDS: NEPHROVITE, (FOLIC ACID/VITAMIN B COMP W-C 1 TAB) GT SCH (09:08)
[2022-09-29] MEDS: MIDODRINE HCL 5 MG TABLET (PROAMATINE) GT SCH ×3 (09:08→21:48)
[2022-09-29] MEDS: PANTOPRAZOLE SODIUM 40 MG/VIAL (PROTONIX) IVP SCH (09:09)
[2022-09-29] MEDS: HYDROcodone/ACETAMIN 5-325 MG TAB (NORCO/ VICODIN) GT PRN (09:09)
[2022-09-29 09:30] LABS: INR 1.4 (0.8-1.2); PROTHROMBIN TIME 14.4 SECS (9.5-12.5)
[2022-09-29 09:48] LABS: ALBUMIN 2.6 g/dL (3.4-4.8); CREATININE 2.69 mg/dL (0.55-1.30); PHOSPHORUS 5.2 mg/dL (2.7-4.5); TOTAL BILIRUBIN 1.1 mg/dL (0.0-1.0)
--- NOTE | 2022-09-29 11:00 | NUR ---
Miss Gallagher has been assessed as indicated. She has successfully been treated for pain x1 This shift. Dressing have been changed with the assistance of her . she was dialyzed today but her bp did not remain stable. HD RN stated that she was only able to clean only, and was unable to remove any fluids today. She also has a pouch near her trach that this report writer did not notice yesterday and RT also stated she was not familiar with it. Yesterday AIRPLANE FIRST OFFICER did note that she was being fed cookies by her . He was reminded that she has a NPO status. The pouch was a dental assistant medical assistant. with proper placement that caused no interference with trach, vent or pt care. She is resting quietly at this time.
[2022-09-29 11:36] VITALS: BP_SYST 99
--- NOTE | 2022-09-29 13:06 | NUR ---
CM: Discharge barriers: communicated with Peewee/Jonah Ramirez , he called [facility] this am for auth. I LVM to Marisela Mercedes/ZENA [facility]# [phone], to give clinical update, still waiting for her return call. Addendum: 09/29/22 at 1538 by Mario Emanuel RN Per Marisela, she is working on getting auth dee Mckenzie and auth for [facility], S. She will call back with the auth no. Per Charles: pt assigned to room 203A, bed is ready after 7 pm, report # [phone]-- KARELY Lundberg aware, ambulance set up is pending.
[2022-09-29] MEDS: DORZOLAMIDE HCL/TIMOLOL MAL. 10 ML EYE DROPS (COSOPT) EACH EYE SCH ×2 (14:49→21:50)
[2022-09-29] MEDS: BRIMONIDINE TARTRATE 0.2% 5 mL EYE DROPS EACH EYE SCH ×2 (14:49→21:50)
[2022-09-29] MEDS: LEVOFLOXACIN 250 MG/D5W 50 ML IV SCH (14:50)
[2022-09-29] MEDS: PEG 400/HYPROMELLOSE/GLYCERIN 15 ML DROPS EACH EYE SCH ×4 (14:50→21:51)
[2022-09-29] MEDS: DEXTROSE 10%-WATER 500 ML IV SCH ×2 (14:52→21:53)
--- NOTE | 2022-09-29 16:07 | NUR ---
CM: Jonah WC: pt assigned to room 203A, bed is ready after 7 pm, report # [phone]. Ambulance: will be arranged by [facility]. She will call nursing unit once has the ETA. KARELY Crowley made aware. DC package placed in nursing unit.
--- NOTE | 2022-09-29 17:15 | NUR ---
Blood bank calls and notifies this property underwriter that the one unit of PRBC has been delayed due to antibodies.
[2022-09-29 18:43] VITALS: BP_SYST 112
--- NOTE | 2022-09-29 19:30 | NUR ---
handoff has been given to Coral
--- NOTE | 2022-09-29 19:45 | NUR ---
Opening note Patient is resting in bed, eyes open. No distress noted. is visitng at bedside. BLANCA midline is SL. G-tube feeding running at 30ml/hr, 0 ml residual noted. Bed is locked in lowest position, side rails up 3x and bed alarm on.
[2022-09-29 20:20] VITALS: BP_SYST 100
--- NOTE | 2022-09-29 20:20 | NUR ---
Reposition, V/S V/S taken; BP is 100/49, HR 56. ict help desk technician in hallway and reports blood is not ready. is still in room and he assisted with reposition and turn.
--- NOTE | 2022-09-29 20:22 | NUR ---
returned case inspector shanice spoke with shanice returned case inspector about this pt she said that they are waiting on [employer] for auth for [facility]. and that i can call [facility] if im unable to get a hold of [employer] to call [facility] and see if they ever got the auth. if not to call roslyn and inform unable to get transport and we will send tomorrow. i called [employer] no answer and called [facility] spoke with bill and he said that they have nothing for this pt.
--- NOTE | 2022-09-29 20:30 | NUR ---
roslyn olivera spoke with evangelista she said ok that we dont have transport .
[2022-09-29] MEDS: MIRTAZAPINE 15 MG TABLET GT SCH (21:48)
[2022-09-29] MEDS: GABAPENTIN 100 MG CAPSULE GT SCH (21:48)
[2022-09-29] MEDS: MELATONIN 5 MG TABLET PO SCH (21:48)
[2022-09-30 01:06] VITALS: BP_SYST 106
[2022-09-30] MEDS: HYDROcodone/ACETAMIN 5-325 MG TAB (NORCO/ VICODIN) GT PRN ×2 (07:08→13:16)
[2022-09-30 08:03] VITALS: BP_SYST 103
--- NOTE | 2022-09-30 08:13 | NUR ---
OPENING NOTE Patient resting in bed. A/O x 3, Mongolian speaking. Patient Breathing even and unlabored on trach to vent. No pain, no distress, no SOB noted. Patient on bedrest. Patient on regular diet. Patient has BLANCA MIDLINE. Bed is locked in lowest position. Call light within reach, all needs met, will continue to monitor. Addendum: 09/30/22 at 0817 by Theresa Yee LVN Patient on GTUBE feedings Nephro at 40cc per hour.
[2022-09-30 08:25] VITALS: BP_SYST 103
[2022-09-30] MEDS: DORZOLAMIDE HCL/TIMOLOL MAL. 10 ML EYE DROPS (COSOPT) EACH EYE SCH ×2 (10:02→21:30)
[2022-09-30] MEDS: PEG 400/HYPROMELLOSE/GLYCERIN 15 ML DROPS EACH EYE SCH ×4 (10:03→21:29)
[2022-09-30] MEDS: levETIRAcetam 500 MG TABLET GT SCH (10:03)
[2022-09-30] MEDS: BRIMONIDINE TARTRATE 0.2% 5 mL EYE DROPS EACH EYE SCH ×2 (10:03→21:32)
[2022-09-30] MEDS: SENNOSIDES 8.6 MG TABLET GT SCH (10:03)
[2022-09-30] MEDS: NEPHROVITE, (FOLIC ACID/VITAMIN B COMP W-C 1 TAB) GT SCH (10:03)
[2022-09-30] MEDS: LACTULOSE 20 GM/30 ML UDC GT SCH (10:03)
[2022-09-30] MEDS: AMIODARONE HCL 200 MG TABLET GT SCH (10:04)
[2022-09-30] MEDS: LACTOBACILLUS RHAMNOSUS GG 1 CAP CAPSULE PO SCH ×2 (10:04→21:28)
[2022-09-30] MEDS: MIDODRINE HCL 5 MG TABLET (PROAMATINE) GT SCH ×3 (10:09→21:20)
[2022-09-30 10:59] LABS: INR 1.3 (0.8-1.2); PROTHROMBIN TIME 13.6 SECS (9.5-12.5)
--- NOTE | 2022-09-30 12:05 | NUR ---
ROUNDS: Patient resting in bed. Patient Breathing even and unlabored on trach to vent. No pain, no distress, no SOB noted. Patient on bedrest. Call light within reach, all needs met, will continue to monitor.
[2022-09-30 12:15] VITALS: BP_SYST 94
[2022-09-30] MEDS: PANTOPRAZOLE SODIUM 40 MG/VIAL (PROTONIX) IVP SCH (12:37)
[2022-09-30] MEDS: LEVOFLOXACIN 250 MG/D5W 50 ML IV SCH (12:38)
--- NOTE | 2022-09-30 12:38 | NUR ---
Scheduled IV abx and IVP medication given per order. Patient stable; resting in bed with no respiratory distress noted - , Jorge at bedside.
--- NOTE | 2022-09-30 14:27 | NUR ---
CM : Transportation arranged by Marisela at [facility] : Arranged with [employer] [facility] [employer] #[phone], alternate # [phone] for 7 pm citrus picker. Reservation # [id number]. If there is any issues, please call [facility] field case manager after hour # [phone] for assitance.-- KARELY Cardenas made aware
--- NOTE | 2022-09-30 14:30 | NUR ---
GTUBE Gtube dislodged while changing. MD Made aware. Gtube is back in position and MD ordered for abdominal x-ray for placement.
[2022-09-30] MEDS ORDERED: GASTROGRAFIN 120 ML ONE (14:48)
--- NOTE | 2022-09-30 15:08 | NUR ---
ZENA Spoke with Te FREITAS, regarding changing transportation to be changed to 9-11pm due to blood transfusion and also for patient gtube placement confirmation. She stated she will inform transportation.
--- NOTE | 2022-09-30 15:55 | NUR ---
CM: Transportation rescheduled by [facility] for cigar packer and picker at 9 pm per TANK HOUSE SUPERVISOR/Theresa's request.
--- NOTE | 2022-09-30 15:55 | NUR ---
GTUBE Gtube turned back on after placement was verified.
--- NOTE | 2022-09-30 16:20 | NUR ---
LARISSA Gave report to Marlin, Charge nurse at [facility] for patient report. Informed her transportation will be picking her up at 2100. Patient's at bedside and was informed.
--- NOTE | 2022-09-30 16:50 | NUR ---
Transfusion of PRBCs started. Patient stable with at bedside.
[2022-09-30 16:57] VITALS: BP_SYST 104
--- NOTE | 2022-09-30 18:10 | NUR ---
AMBULANCE Transportation called to inform me that patient is going to be at 2am. MD Rodriguez was made aware and patient.
--- NOTE | 2022-09-30 18:44 | NUR ---
CLOSING NOTE Patient resting in bed. A/O x 3, Slovak speaking. Patient Breathing even and unlabored on trach to vent. No pain, no distress, no SOB noted. Patient on bedrest. Patient on GTUBE Nephro at 40cc/hr. Patient has BLANCA MIDLINE on infusion pump currently getting 1 uint of PRC. Bed is locked in lowest position. Call light within reach, all needs met, will Endorse to nightshift nurse.
--- NOTE | 2022-09-30 19:55 | NUR ---
RECEIVED PT LYING IN BED, NO DISTRESS NOTED, DENIES PAIN. AAOX3, ON VENT RT AT BED SIDE. O2 SAT 97%. MIDLINE TO RUE SITE CDI. GT FEEDING INFUSING AT 30CC/HR NO RESIDUAL NOTED. PALPABLE PULSES TO ALL EXTREMITIES. BLOOD TRANSFUSION ABOUT TO BE COMPETED. RT IJ RANDOLPHG CDI. Addendum: 09/30/22 at 1959 by Sixty One RegistryKARELY RN HUANG TO [facility] CDI
[2022-09-30 20:00] VITALS: BP_SYST 103
[2022-09-30] MEDS: GABAPENTIN 100 MG CAPSULE GT SCH (21:28)
[2022-09-30] MEDS: MELATONIN 5 MG TABLET PO SCH (21:28)
[2022-09-30] MEDS: MIRTAZAPINE 15 MG TABLET GT SCH (21:28)
[2022-10-01] VITALS: BP_SYST 111
[2022-10-01 01:01] VITALS: BP_SYST 106
--- NOTE | 2022-10-01 01:30 | NUR ---
PT CASH GRAIN GROWER VIA AMBULANCE. DISCHARGE INSTRUCTION EXPLAINED TO PT AND PT'S . MIDLINE DRSG WAS CHANGED. PICTURES OF WOUNDS TAKEN. GT DRSG CHANGED. GT SITE INTACT
== END 2022-10-01 01:10 ==
LOC: SED 18:35 → STU 21:08 → SMU 09-25 11:45 → SIC 09-25 12:50 → STU 09-25 14:22
PROVIDERS: ADMIT Internal Medicine; ATTEND Internal Medicine
PROC: 5A1955Z Respiratory Ventilation, Greater than 96 Consecutive Hours (ICD-10-PCS; principal; 2022-09-23)
PROC: 0W9G3ZZ Drainage of Peritoneal Cavity, Percutaneous Approach (ICD-10-PCS; 2022-09-25)
PROC: 30233N1 Transfusion of Nonautologous Red Blood Cells into Peripheral Vein, Percutaneous Approach (ICD-10-PCS; 2022-09-25)
PROC: 5A1D70Z Performance of Urinary Filtration, Intermittent, Less than 6 Hours Per Day (ICD-10-PCS; 2022-09-25)
PROC: 5A1D70Z Performance of Urinary Filtration, Intermittent, Less than 6 Hours Per Day (ICD-10-PCS; 2022-09-26)
PROC: 5A1D70Z Performance of Urinary Filtration, Intermittent, Less than 6 Hours Per Day (ICD-10-PCS; 2022-09-27)
PROC: 0W9G3ZZ Drainage of Peritoneal Cavity, Percutaneous Approach (ICD-10-PCS; 2022-09-28)
PROC: 5A1D70Z Performance of Urinary Filtration, Intermittent, Less than 6 Hours Per Day (ICD-10-PCS; 2022-09-29)
PROC: 30233K1 Transfusion of Nonautologous Frozen Plasma into Peripheral Vein, Percutaneous Approach (ICD-10-PCS; 2022-09-30)
DX: K74.60 Unspecified cirrhosis of liver (principal); J96.21 Acute and chronic respiratory failure with hypoxia; J15.1 Pneumonia due to Pseudomonas; E44.0 Moderate protein-calorie malnutrition; I13.2 Hypertensive heart and chronic kidney disease with heart failure and with stage 5 chronic kidney disease, or end stage renal disease; N18.6 End stage renal disease; D63.8 Anemia in other chronic diseases classified elsewhere; I42.9 Cardiomyopathy, unspecified; R18.8 Other ascites; Q87.40 Marfan syndrome, unspecified; R65.10 Systemic inflammatory response syndrome (SIRS) of non-infectious origin without acute organ dysfunction; I48.0 Paroxysmal atrial fibrillation; I50.42 Chronic combined systolic (congestive) and diastolic (congestive) heart failure; G40.909 Epilepsy, unspecified, not intractable, without status epilepticus; N39.0 Urinary tract infection, site not specified; R13.10 Dysphagia, unspecified; R47.01 Aphasia; I71.40 Abdominal aortic aneurysm, without rupture, unspecified; Z20.822 Contact with and (suspected) exposure to COVID-19; Z99.2 Dependence on renal dialysis; Z86.73 Personal history of transient ischemic attack (TIA), and cerebral infarction without residual deficits; Z68.23 Body mass index [BMI] 23.0-23.9, adult; Z99.11 Dependence on respirator [ventilator] status
CPT/HCPCS: 36415; 49083; 71045; 74240-TC; 76376; 76770; 80048; 80053; 82947; 83605; 84100; 84157; 84484; 85025; 85610-TC; 85730-TC; 86870; 86886; 86900; 86901; 86920; 87040; 87070-TC; 87081; 87205-TC; 89051-TC; 89060-TC; 93005; 94002; 94003; 94640; 94760; 96365; 99285; C9113; G0378; J1956; J2270; J2543; P9021; P9046; P9059; Q9963